=== PATIENT | female | born 1945 | race Caucasian/White ===

== ENCOUNTER 2024-07-28 03:50 | Inpatient (IN) | payer OTHER ==
[~2024-07-28] VITALS: Ht 172.7 cm; Wt 50.5 kg
[2024-07-28] MEDS ORDERED: IOHEXOL-350 100 ML VIAL IV ONE (04:15)
[2024-07-28] MEDS ORDERED: CT SWABBABLE VALVE TRANS SET 1 EA INFUS.SET MC ONE (04:15)
[2024-07-28] MEDS ORDERED: IV NS 0.9% 250 ML IV ONE (04:15)
[2024-07-28] MEDS: IV NS 0.9% 1,000 ML BAG IV ONE (04:17)
[2024-07-28 04:30] LABS: BASOPHILS # (AUTO) 0.1 K/uL (0.0-0.2); BASOPHILS % (AUTO) 0.6 % (0.0-2.0); EOSINOPHILS # (AUTO) 0.1 K/uL (0.0-0.7); EOSINOPHILS % (AUTO) 1.2 % (0.0-6.0); HEMATOCRIT 22 % (33-45); HEMOGLOBIN 7.3 g/dL (11.5-14.8); LYMPHOCYTES # (AUTO) 1.8 K/uL (0.8-4.8); LYMPHOCYTES % (AUTO) 16.3 % (20.0-44.0); MEAN CORPUSCULAR HEMOGLOBIN 33 PG (26.0-33.0); MEAN CORPUSCULAR HGB CONC 33 g/dl (31.0-36.0); MEAN CORPUSCULAR VOLUME 100 fL (82-100); MONOCYTES # (AUTO) 0.5 K/uL (0.1-1.30); MONOCYTES % (AUTO) 4.7 % (2.0-12.0); NEUTROPHILS # (AUTO) 8.3 K/uL (1.8-8.9); NEUTROPHILS % (AUTO) 77.2 % (43.0-81.0); PLATELET COUNT (AUTO) 66 K/uL (150-450); RED BLOOD CELL COUNT(AUTO) 2.19 MIL/uL (4.0-5.2); WHITE BLOOD COUNT (AUTO) 10.8 K/uL (4.3-11.0)
[2024-07-28 04:38] LABS: CALCIUM, SERUM 10.8 mg/dL (8.5-10.1); CARBON DIOXIDE 28 mmol/L (21-32); CHLORIDE 105 mmol/L (98-107); CREATININE 0.4 mg/dL (0.6-1.3); GLUCOSE 123 mg/dL (74-106); POTASSIUM 4.5 mmol/L (3.5-5.1); SODIUM SERUM 136 mmol/L (136-145); UREA NITROGEN, BLOOD 19 mg/dL (7-18)
[2024-07-28 04:41] LABS: INR 1.16 (0.91-1.10); PARTIAL THROMBOPLASTIN TIME 24.8 SEC (24.3-34.3); PROTHROMBIN TIME 12.2 SECS (9.2-11.1)
[2024-07-28 04:44] LABS: ALANINE AMINOTRANSFERASE 12 U/L (12-78); ALBUMIN 1.6 g/dL (3.4-5.0); ALKALINE PHOSPHATASE 120 U/L (46-116); ASPARTATE AMINOTRANSFERASE 26 U/L (15-37); BILIRUBIN,DIRECT 0.1 mg/dL (0.0-0.2); BILIRUBIN,TOTAL 0.3 mg/dL (0.2-1.0); TOTAL PROTEIN, SERUM 4.8 g/dL (6.4-8.2)
[2024-07-28 04:46] LABS: LACTIC ACID 1.7 mmol/L (0.4-2.0)
[2024-07-28] MEDS: VANCOMYCIN 1 GM in IV D5W 250 ML IV ONE (04:53)
[2024-07-28] MEDS ORDERED: VANCOMYCIN 1 GM /D5W 250 ML PB IV ONE (04:53)
[2024-07-28] MEDS: PIPERACILLIN /TAZOBACTAM 3.375 G in IV D5W 50 ML IV ONE (04:53)
[2024-07-28] MEDS ORDERED: PIPERACI/TAZO 3.375GM/D5W 50ML PB IV ONE (04:53)
[2024-07-28] MEDS ORDERED: LEVOFLOXACIN 750 MG /D5W 150ML 150 ML IV ONE (05:04)
[2024-07-28] MEDS: LEVOFLOXACIN 750 MG /D5W 150ML 750 MG in PREMIX 1 EA IV SCH (05:11)
[2024-07-28] MEDS ORDERED: ACETAMINOPHEN 650 MG/SUPP.RECT RC PRN (05:30)
[2024-07-28] MEDS ORDERED: ONDANSETRON HCL/PF 4 MG/2 ML VIAL IVP PRN (05:30)
[2024-07-28] MEDS ORDERED: Z GUARD REMEDY 4 OZ OINT TP PRN (05:30)
[2024-07-28 05:33] LABS: APPEARANCE,URINE CLEAR (CLEAR); BILIRUBIN,URINE NEGATIVE (NEGATIVE); BLOOD, URINE NEGATIVE Ery/uL (NEGATIVE); COLOR,URINE YELLOW (YELLOW); KETONES,URINE NEGATIVE (NEGATIVE); LEUKOCYTE ESTERASE ,URINE NEGATIVE (NEGATIVE); NITRITE, URINE NEGATIVE (NEGATIVE); PROTEIN,URINE NEGATIVE (NEGATIVE); UGLUCOSE NEGATIVE (NEGATIVE); UROBILINOGEN,URINE 0.2 EU/dL (0.2)
[2024-07-28 05:48] LABS: BAND % (MANUAL) 1 % (0.0-5.0); EOSINOPHILS % (MANUAL) 1 % (0-4); LYMPHOCYTES % (MANUAL) 21 % (16-48); MONOCYTES % (MANUAL) 3 % (0-11.0); NEUTROPHILS % (MANUAL) 74 (42-76); PLATELET ESTIMATE DECREASED
[2024-07-28] MEDS ORDERED: POLY17PO4 PO (07:27)
[2024-07-28] MEDS ORDERED: ASCO100058 PO (07:27)
[2024-07-28] MEDS ORDERED: MEGE400O6 PO (07:27)
[2024-07-28] MEDS ORDERED: METF-441 PO (07:27)
[2024-07-28] MEDS ORDERED: AMLO10TA4 PO (07:27)
[2024-07-28] MEDS ORDERED: GABA300C PO (07:27)
[2024-07-28] MEDS ORDERED: MULT-594 PO (07:27)
[2024-07-28] MEDS ORDERED: CYAN500T9 PO (07:27)
[2024-07-28] MEDS ORDERED: ACET-1951 PO (07:27)
[2024-07-28] MEDS ORDERED: DOCU100T2 PO (07:27)
[2024-07-28] MEDS ORDERED: LOSA50TA39 PO (07:27)
[2024-07-28] MEDS ORDERED: MORPHINE SULFATE INJ 2 MG/ML DISP.SYRIN ONE (08:28)
[2024-07-28 08:30] VITALS: BP 113/56; TEMP 97.3; O2SAT 100
[2024-07-28] MEDS: MORPHINE SULFATE INJ 2 MG/ML DISP.SYRIN IV STA (08:41)
[2024-07-28] MEDS ORDERED: PANTOPRAZOLE 40 MG VIAL IV SCH (09:00)
[2024-07-28] MEDS ORDERED: LORAZEPAM INJ 2 MG/ML VIAL IV PRN (09:30)
[2024-07-28 12:00] VITALS: BP 108/60; TEMP 97.3; O2SAT 99
[2024-07-28 16:00] VITALS: BP 113/56; TEMP 97.3; O2SAT 99
[2024-07-28] MEDS: MORPHINE SULFATE INJ 2 MG/ML DISP.SYRIN IM PRN (16:16)
[2024-07-28 20:00] VITALS: BP 103/51; TEMP 98.6; O2SAT 100
[2024-07-29] VITALS: BP 97/51; TEMP 98.6; O2SAT 100
[2024-07-29 04:00] VITALS: BP 102/51; TEMP 98.9; O2SAT 100
[2024-07-29 08:00] VITALS: BP 112/57; TEMP 98.2; O2SAT 100
[2024-07-29] MEDS ORDERED: POLYETHYLENE GLYCOL 3350 17 GM POWD.PACK PO PRN (09:30)
[2024-07-29] MEDS: IV 1/2NS 1000 ML 1,000 ML IV PRN (10:35)
[2024-07-29] MEDS: LEVOFLOXACIN 500 MG /D5W 100ML 500 MG in PREMIX 1 EA IV SCH (11:01)
[2024-07-29 12:00] VITALS: BP 112/57; TEMP 97.3; O2SAT 100
[2024-07-29] MEDS: THERAHONEY GEL 1.5 OZ TUBE TP SCH (12:00)
[2024-07-29] MEDS: METRONIDAZOLE 500MG/ NS 100ML 500 MG in PREMIX 1 EA IV SCH (12:25)
[2024-07-29] MEDS: HYDROCODONE/APAP 5/325MG TABLET PO PRN (14:25)
[2024-07-29] MEDS: ARGININE/GLUTAMINE/CALCIUM BMB 1 EACH POWD.PACK PO SCH (15:03)
[2024-07-29] MEDS: PROSOURCE / PROSTAT (PYXIS) 30 ML UDC PO SCH (15:03)
[2024-07-29 16:00] VITALS: BP 110/53; TEMP 98.8; O2SAT 100
[2024-07-29] MEDS: MEGESTROL ACETATE SUSP 400 MG/10 ML UDC PO SCH (16:54)
[2024-07-29] MEDS: METFORMIN 850 MG TABLET PO SCH (16:54)
[2024-07-29] MEDS: GABAPENTIN 300 MG CAPSULE PO SCH (16:54)
[2024-07-29] MEDS: DOCUSATE SODIUM 100 MG CAPSULE PO SCH (16:54)
[2024-07-29] MEDS: GLUCERNA SHAKE 237 ML CAN PO SCH (17:00)
[2024-07-29 20:00] VITALS: BP 110/60; TEMP 98.8; O2SAT 100
[2024-07-30] VITALS: BP 113/59; TEMP 97.7; O2SAT 98
[2024-07-30 04:00] VITALS: BP 112/61; TEMP 97.7; O2SAT 99
[2024-07-30 08:00] VITALS: BP 115/58; TEMP 97.5; O2SAT 98
[2024-07-30] MEDS: MULTIVITAMINS,THERAGRAN 1 UDTAB TABLET PO SCH (09:44)
[2024-07-30] MEDS: ASCORBIC ACID 500 MG TABLET PO SCH (09:45)
[2024-07-30] MEDS: CYANOCOBALAMIN 500 MCG TABLET PO SCH (09:45)
[2024-07-30 12:00] VITALS: BP 119/60; TEMP 97.4; O2SAT 98
[2024-07-30 19:20] LABS: ABG BASE EXCESS -3.4 mmol/L (-2.0-3.0); ABG OXYGEN SATURATION 83.1 % (94.0-98.0); ABG PCO2 31.5 mmHg (32.0-45.0); ABG PH 7.426 (7.350-7.450); ABG PO2 48.8 mmHg (83.0-108.0); ABG TOTAL HEMOGLOBIN 10.7 G/dL (12.0-16.0); COHb 0.3 % (0.5-1.5); MetHb 0.3 % (0.0-1.5); O2Hb 82.6 % (94.0-97.0); SITE, ABG LEFT RADIAL
== END 2024-07-30 17:38 | disposition hospice, inpatient (51) | DRG 871 ==
LOC: ER 03:52 → EDBD 03:52 → TELE1 07:40
PROVIDERS: ADMIT Internal Medicine; ATTEND Internal Medicine
PROC: 30233N1 Transfusion of Nonautologous Red Blood Cells into Peripheral Vein, Percutaneous Approach (ICD-10-PCS; principal; 2024-07-28)
DX: A41.9 Sepsis, unspecified organism (principal); E43 Unspecified severe protein-calorie malnutrition; L89.153 Pressure ulcer of sacral region, stage 3; J96.01 Acute respiratory failure with hypoxia; G93.41 Metabolic encephalopathy; J69.0 Pneumonitis due to inhalation of food and vomit; C79.51 Secondary malignant neoplasm of bone; C78.00 Secondary malignant neoplasm of unspecified lung; J90 Pleural effusion, not elsewhere classified; J98.11 Atelectasis; R64 Cachexia; Z66 Do not resuscitate; Z51.5 Encounter for palliative care; Z20.822 Contact with and (suspected) exposure to COVID-19; Z86.19 Personal history of other infectious and parasitic diseases; E11.9 Type 2 diabetes mellitus without complications; I10 Essential (primary) hypertension; C50.912 Malignant neoplasm of unspecified site of left female breast; C50.911 Malignant neoplasm of unspecified site of right female breast; E88.09 Other disorders of plasma-protein metabolism, not elsewhere classified; Z88.1 Allergy status to other antibiotic agents; Z91.018 Allergy to other foods; Z91.048 Other nonmedicinal substance allergy status; Z88.0 Allergy status to penicillin; Z88.2 Allergy status to sulfonamides; D63.8 Anemia in other chronic diseases classified elsewhere; D69.6 Thrombocytopenia, unspecified; Z86.718 Personal history of other venous thrombosis and embolism; T17.990A Other foreign object in respiratory tract, part unspecified in causing asphyxiation, initial encounter; Y92.129 Unspecified place in nursing home as the place of occurrence of the external cause
CPT/HCPCS: 36415; 36600; 71045-TC; 80048-TC; 80076-TC; 82803-TC; 83605-TC; 84484-TC; 85025-TC; 85730-TC; 86850-TC; 87040-TC; 87086-TC; 92526; 92611-TC; 94799-TC; A4216; A4223; A6253; A6403; G0378; J1956; J2270; J2543; J3370; J3490; J7040; J7050; J7060; P9016; Q9967